=== PATIENT | female | born 1945 | race Two or more races ===

== ENCOUNTER 2024-05-09 08:55 | Inpatient (IN) | payer OTHER ==
[~2024-05-09] VITALS: Ht 167.6 cm; Wt 59.3 kg
[2024-05-09 09:20] VITALS: PULSE 73; RESP 22; O2SAT 94
[2024-05-09 09:59] LABS: Chloride 99 mmol/L (98-107); Sodium 137 mmol/L (136-145)
[2024-05-09 10:00] LABS: Anion Gap 9 (5-15); Carbon Dioxide 29 mmol/L (20-30)
[2024-05-09 10:01] LABS: Calcium 9.9 mg/dL (8.5-10.1)
[2024-05-09 10:04] LABS: Basophils # (auto) 0 10 ^3/uL (0-0.2); Basophils % (auto) 0.4 % (0.0-2.0); Eosinophils # (auto) 0.2 10 ^3/uL (0-0.8); Eosinophils % (auto) 1.7 % (0.0-7.0); Hematocrit 36.8 % (36.0-46.0); Lymphocytes % (auto) 30.1 % (10.0-50.0); Mean Corpuscular Hemoglobin 31.8 pg (28.0-32.0); Mean Corpuscular Hgb Conc. 35.4 g/dL (32.0-36.0); Monocytes # (auto) 0.4 10 ^3/uL (0-1.3); Monocytes % (auto) 4.2 % (0.0-12.0); Neutrophils # (auto) 6.3 10 ^3/uL (1.6-8.6); Neutrophils % (auto) 63.6 % (37.0-80.0); Nucleated Red Blood Cells % 0.1 %; Red Blood Cells 4.09 10^6/uL (4.0-5.20); White Blood Cell 9.9 10^3/uL (4.4-10.8)
[2024-05-09 10:05] LABS: BUN/Creatinine Ratio 20.6 (10.0-20.0); Blood Urea Nitrogen 22 mg/dL (9-23); Glucose 131 mg/dL (74-106)
[2024-05-09 10:22] LABS: Potassium 2.2 mmol/L (3.5-5.1)
[2024-05-09] MEDS: POTASSIUM CHL 20MEQ/100ML 100 ML IV SCH (10:46)
[2024-05-09] MEDS: IOHEXOL 300 MG/ML 100ML BOTTLE IJ ONE (10:51)
[2024-05-09] MEDS: ASPirin 81 mg TAB PO ONE (16:54)
[2024-05-09] MEDS: MORPHINE SULFATE 4 MG/ML SYR/VIAL IV ONE (16:55)
[2024-05-09 19:35] VITALS: PULSE 65; RESP 16; O2SAT 100
[2024-05-09] MEDS: FLEET ENEMA(ADULT) 135 ML PR ONE (20:30)
[2024-05-09] MEDS ORDERED: ONDANSETRON HCL 4 MG/2 ML VIAL IV PRN (20:30)
[2024-05-09] MEDS ORDERED: ACETAMINOPHEN 325 MG TAB PO PRN ×2 (20:30→22:00)
[2024-05-09] MEDS ORDERED: NITROGLYCERIN 0.4 MG SL TAB SL PRN (22:00)
[2024-05-09] MEDS ORDERED: MORPHINE SULFATE INJ 2 MG/ml SYRG IV PRN ×2 (22:00)
[2024-05-09] MEDS: ENOXAPARIN SOD 80 MG/0.8ML SYRINGE SC ONE (22:02)
[2024-05-09] MEDS: ATORVASTATIN 20 MG TAB PO SCH (22:07)
[2024-05-09] MEDS: DOCUSATE SOD 100 MG CAP PO SCH (22:07)
[2024-05-09 23:12] LABS: Urine Bacteria None Seen /hpf (None Seen); Urine WBC None Seen /hpf (0 - 5)
[2024-05-09 23:46] LABS: Urine Blood Negative /uL (Negative); Urine Clarity Clear (Clear); Urine Color Light-Yellow (Yellow); Urine Hyaline Cast MOD /lpf (0 - 2); Urine Mucus FEW (None Seen); Urine Protein, UAD Negative (Negative); Urine Specific Gravity 1.015 (1.001-1.035); Urine Urobilinogen Normal (Negative)
[2024-05-10] VITALS (9 sets, daily range): BP systolic 96–108; BP diastolic 51–61; PULSE 65–81; RESP 16–22; TEMP 97.8–98.3; O2SAT 93–98
[2024-05-10] MEDS ORDERED: QUET50TA PO (02:14)
[2024-05-10] MEDS ORDERED: MEMA1TAB5 PO (02:14)
[2024-05-10] MEDS ORDERED: HYDR25TA4 PO (02:14)
[2024-05-10] MEDS ORDERED: ATOR40TA52 PO (02:14)
[2024-05-10] MEDS ORDERED: POTA1TAB4 PO (02:14)
[2024-05-10] MEDS ORDERED: FURO40TA4 PO (02:14)
[2024-05-10] MEDS ORDERED: CHOL20007 PO (02:14)
[2024-05-10] MEDS ORDERED: METH2.5T PO (02:14)
[2024-05-10] MEDS ORDERED: ATRO1SOL21 SL (02:58)
[2024-05-10] MEDS ORDERED: LOPE1TAB9 PO (02:58)
[2024-05-10] MEDS ORDERED: ACET325T82 PR (02:58)
[2024-05-10] MEDS ORDERED: ZOFR4T PO (02:58)
[2024-05-10] MEDS ORDERED: ACET325T82 PO (02:58)
[2024-05-10] MEDS ORDERED: MAGN400S25 PO (02:58)
[2024-05-10] MEDS ORDERED: ALBU0.084 NEB (02:58)
[2024-05-10] MEDS ORDERED: BISA-51 PR (02:58)
[2024-05-10] MEDS ORDERED: ALUM1SUS PO (02:58)
[2024-05-10] MEDS ORDERED: SENN-213 PO (02:58)
[2024-05-10 06:07] LABS: Basophils # (auto) 0 10 ^3/uL (0-0.2); Basophils % (auto) 0.2 % (0.0-2.0); Eosinophils # (auto) 0 10 ^3/uL (0-0.8); Eosinophils % (auto) 0.3 % (0.0-7.0); Hematocrit 35.8 % (36.0-46.0); Hemoglobin 12.4 g/dL (12.2-16.2); Lymphocytes # (auto) 1.2 10 ^3/uL (0.4-5.4); Lymphocytes % (auto) 9.5 % (10.0-50.0); Mean Corpuscular Hemoglobin 31.8 pg (28.0-32.0); Mean Corpuscular Hgb Conc. 34.6 g/dL (32.0-36.0); Monocytes # (auto) 0.6 10 ^3/uL (0-1.3); Monocytes % (auto) 4.5 % (0.0-12.0); Neutrophils # (auto) 11.1 10 ^3/uL (1.6-8.6); Neutrophils % (auto) 85.5 % (37.0-80.0); Red Blood Cells 3.89 10^6/uL (4.0-5.20); Red Cell Distribution Width 14.9 % (11.8-14.3)
[2024-05-10 06:31] LABS: Alanine Aminotransferase 41 U/L (7-40); Albumin 3.9 g/dL (3.2-4.8); Alkaline Phosphatase 94 U/L (46-116); Anion Gap 6 (5-15); Aspartate Aminotransferase 50 U/L (13-40); BUN/Creatinine Ratio 17.2 (10.0-20.0); Blood Urea Nitrogen 15 mg/dL (9-23); Calcium 9.8 mg/dL (8.7-10.4); Carbon Dioxide 30 mmol/L (20-30); Chloride 104 mmol/L (98-107); Glucose 96 mg/dL (74-106); Sodium 140 mmol/L (136-145)
[2024-05-10 06:33] LABS: Bilirubin, Total 1.9 mg/dL (0.2-1.0)
[2024-05-10 06:50] LABS: Potassium 2.3 mmol/L (3.5-5.1)
[2024-05-10] MEDS ORDERED: POTASSIUM CHL 20MEQ/100ML 100 ML IV ONE ×2 (07:00)
[2024-05-10 07:05] LABS: Total Protein 6.6 g/dL (5.7-8.2)
[2024-05-10] MEDS: POTASSIUM CHL 20 Meq TABLET PO ONE (07:11)
[2024-05-10] MEDS: POTASSIUM CHL 20MEQ/100ML 100 ML IV SCH (07:22)
[2024-05-10] MEDS: hydroCHLOROthiazide 25 MG TAB PO SCH (10:10)
[2024-05-10] MEDS: ASPirin 81 mg TAB PO SCH (10:10)
[2024-05-10] MEDS: FUROSEMIDE 40 MG TAB PO SCH (10:11)
[2024-05-10] MEDS: PANTOPRAZOLE 40 MG/10 ML VIAL INJ IV SCH (10:12)
[2024-05-10] MEDS: ENOXAPARIN SOD 40 MG/0.4 ML SYRINGE SC SCH (10:12)
[2024-05-10] MEDS: LACTULOSE 20Gm/30ML SOLN PO ONE (11:04)
[2024-05-10 13:48] LABS: Chloride 104 mmol/L (98-107); Potassium 2.9 mmol/L (3.5-5.1); Sodium 141 mmol/L (136-145)
[2024-05-10 13:49] LABS: Anion Gap 11 (5-15); Calcium 10.5 mg/dL (8.7-10.4); Carbon Dioxide 26 mmol/L (20-30)
[2024-05-10 13:54] LABS: BUN/Creatinine Ratio 12.4 (10.0-20.0); Blood Urea Nitrogen 12 mg/dL (9-23); Glucose 98 mg/dL (74-106)
[2024-05-10] MEDS: MEMANTINE HCL 5 MG TAB PO SCH (22:19)
[2024-05-10] MEDS: SENNA 8.6 MG TAB PO SCH (22:19)
[2024-05-11] VITALS (7 sets, daily range): BP systolic 90–119; BP diastolic 56–76; PULSE 59–82; RESP 16–19; TEMP 97.1–98.3; O2SAT 94–100
[2024-05-11] MEDS: LORazepam 2MG/ML-1ML VIAL IV PRN (09:49)
[2024-05-11] MEDS: METOPROLOL TARTRATE 25 MG TAB PO SCH (09:52)
[2024-05-11 12:13] LABS: Free T4 (Free Thyroxine) 1.1 ng/dL (0.89-1.76)
[2024-05-11 12:37] LABS: Folate (Folic Acid) 29.11 ng/mL (>5.38)
[2024-05-11] MEDS: IOHEXOL 350 MG/ML 100ML IJ ONE (12:45)
[2024-05-12] VITALS (10 sets, daily range): BP systolic 96–118; BP diastolic 61–73; PULSE 73–88; RESP 16–18; TEMP 97.3–98.2; O2SAT 94–99
[2024-05-12 06:45] LABS: Alanine Aminotransferase 27 U/L (7-40); Albumin 4.2 g/dL (3.2-4.8); Alkaline Phosphatase 101 U/L (46-116); Anion Gap 11 (5-15); Aspartate Aminotransferase 41 U/L (13-40); Bilirubin, Total 3.1 mg/dL (0.2-1.0); Blood Urea Nitrogen 16 mg/dL (9-23); Calcium 10.7 mg/dL (8.7-10.4); Carbon Dioxide 29 mmol/L (20-30); Chloride 100 mmol/L (98-107); Glucose 93 mg/dL (74-106); Sodium 140 mmol/L (136-145); Total Protein 7.6 g/dL (5.7-8.2)
[2024-05-12 07:06] LABS: Potassium 2.2 mmol/L (3.5-5.1)
[2024-05-12 14:04] LABS: Basophils # (auto) 0 10 ^3/uL (0-0.2); Basophils % (auto) 0.3 % (0.0-2.0); Eosinophils # (auto) 0 10 ^3/uL (0-0.8); Eosinophils % (auto) 0.2 % (0.0-7.0); Hematocrit 41.6 % (36.0-46.0); Hemoglobin 14.3 g/dL (12.2-16.2); Lymphocytes # (auto) 1.5 10 ^3/uL (0.4-5.4); Lymphocytes % (auto) 11.2 % (10.0-50.0); Mean Corpuscular Hemoglobin 31.8 pg (28.0-32.0); Mean Corpuscular Hgb Conc. 34.5 g/dL (32.0-36.0); Mean Corpuscular Volume 92.1 fL (80.0-100.0); Monocytes # (auto) 0.8 10 ^3/uL (0-1.3); Monocytes % (auto) 6.1 % (0.0-12.0); Neutrophils # (auto) 10.8 10 ^3/uL (1.6-8.6); Neutrophils % (auto) 82.2 % (37.0-80.0); Nucleated Red Blood Cells % 0.2 %; Red Blood Cells 4.52 10^6/uL (4.0-5.20); White Blood Cell 13.2 10^3/uL (4.4-10.8)
[2024-05-12] MEDS: POTASSIUM CHL 20MEQ/100ML 100 ML IV SCH (14:41)
[2024-05-12] MEDS: SOD CHL 0.9%/ KCL 20MEQ 1,000 ML IV SCH (18:41)
[2024-05-12] MEDS: POTASSIUM CHLORIDE 60 MEQ, LIDOCAINE 1% (LOCAL ANESTH.) 6 ML in SODIUM CHL 0.9% 500 ML IV ONE (18:42)
[2024-05-12 19:13] LABS: Phosphorus 2.9 mg/dL (2.4-5.1)
[2024-05-13] VITALS (7 sets, daily range): BP systolic 101–136; BP diastolic 61–69; PULSE 64–88; RESP 18–20; TEMP 97.3–98.2; O2SAT 95–100
[2024-05-13 06:38] LABS: Alanine Aminotransferase 22 U/L (7-40); Aspartate Aminotransferase 33 U/L (13-40)
[2024-05-13 06:39] LABS: Bilirubin, Total 2.2 mg/dL (0.2-1.0); Chloride 106 mmol/L (98-107); Potassium 2.7 mmol/L (3.5-5.1); Sodium 141 mmol/L (136-145); Total Protein 6.6 g/dL (5.7-8.2)
[2024-05-13 06:42] LABS: Anion Gap 8 (5-15); Calcium 9.8 mg/dL (8.5-10.1); Carbon Dioxide 27 mmol/L (20-30)
[2024-05-13 06:47] LABS: Alkaline Phosphatase 92 U/L (46-116); BUN/Creatinine Ratio 19.1 (10.0-20.0); Blood Urea Nitrogen 21 mg/dL (9-23); Glucose 106 mg/dL (74-106); Magnesium 2.2 mg/dL (1.6-2.6)
[2024-05-13 06:48] LABS: Basophils # (auto) 0 10 ^3/uL (0-0.2); Basophils % (auto) 0.2 % (0.0-2.0); Eosinophils # (auto) 0 10 ^3/uL (0-0.8); Eosinophils % (auto) 0.4 % (0.0-7.0); Hematocrit 38.3 % (36.0-46.0); Hemoglobin 13.5 g/dL (12.2-16.2); Lymphocytes # (auto) 1.3 10 ^3/uL (0.4-5.4); Lymphocytes % (auto) 11.8 % (10.0-50.0); Mean Corpuscular Hgb Conc. 35.3 g/dL (32.0-36.0); Mean Corpuscular Volume 90.6 fL (80.0-100.0); Monocytes # (auto) 0.8 10 ^3/uL (0-1.3); Monocytes % (auto) 7.4 % (0.0-12.0); Neutrophils # (auto) 8.7 10 ^3/uL (1.6-8.6); Neutrophils % (auto) 80.2 % (37.0-80.0); Nucleated Red Blood Cells % 0.1 %; Red Blood Cells 4.22 10^6/uL (4.0-5.20); White Blood Cell 10.8 10^3/uL (4.4-10.8)
[2024-05-13 06:49] LABS: Albumin 3.8 g/dL (3.2-4.8)
[2024-05-13] MEDS: POTASSIUM CHL 20 Meq TABLET PO ONE ×2 (09:34→21:18)
[2024-05-13] MEDS: SPIRONOLACTONE 25 MG TAB PO SCH (09:34)
[2024-05-13] MEDS: POTASSIUM CHLORIDE 20 MEQ, LIDOCAINE 1% (LOCAL ANESTH.) 2 ML in SODIUM CHL 0.9% 100 ML IV ONE (10:08)
[2024-05-13] MEDS: POTASSIUM EFFERVESENT TAB 25 MEQ PO ONE (13:54)
[2024-05-14] VITALS (14 sets, daily range): BP systolic 113–139; BP diastolic 54–82; PULSE 69–97; RESP 14–23; TEMP 97.6–98.2; O2SAT 92–99
[2024-05-14 06:54] LABS: Anion Gap 7 (5-15); Carbon Dioxide 27 mmol/L (20-30); Chloride 114 mmol/L (98-107)
[2024-05-14 06:55] LABS: Basophils # (auto) 0 10 ^3/uL (0-0.2); Basophils % (auto) 0.2 % (0.0-2.0); Calcium 10.3 mg/dL (8.7-10.4); Eosinophils # (auto) 0 10 ^3/uL (0-0.8); Eosinophils % (auto) 0.3 % (0.0-7.0); Hematocrit 37.5 % (36.0-46.0); Hemoglobin 13.1 g/dL (12.2-16.2); Lymphocytes # (auto) 1.1 10 ^3/uL (0.4-5.4); Lymphocytes % (auto) 10.1 % (10.0-50.0); Mean Corpuscular Hemoglobin 32.5 pg (28.0-32.0); Mean Corpuscular Volume 92.6 fL (80.0-100.0); Monocytes # (auto) 0.6 10 ^3/uL (0-1.3); Neutrophils # (auto) 9.3 10 ^3/uL (1.6-8.6); Neutrophils % (auto) 84.4 % (37.0-80.0); Red Blood Cells 4.04 10^6/uL (4.0-5.20); Red Cell Distribution Width 14.8 % (11.8-14.3)
[2024-05-14 07:00] LABS: BUN/Creatinine Ratio 21.7 (10.0-20.0); Blood Urea Nitrogen 20 mg/dL (9-23); Glucose 96 mg/dL (74-106); Magnesium 2.1 mg/dL (1.6-2.6)
[2024-05-14 07:01] LABS: Sodium 148 mmol/L (136-145)
[2024-05-14 09:34] LABS: INR 0.98 (0.9-1.15); Partial Thromboplastin Time 21.1 SEC (24.5-34.5); Prothrombin Time 10.4 sec (9.3-11.8)
[2024-05-14] MEDS: LIDOCAINE 2%HCL (LOCAL ANESTH.) INJ 20ML MDV ONE (15:01)
[2024-05-14] MEDS: ANGIOMAX 250 MG VIAL IV ONE (15:06)
[2024-05-14] MEDS: VERAPAMIL 2.5MG/ML INJ 2ML VIAL IV ONE (15:06)
[2024-05-14] MEDS: HEPARIN SODIUM (PORCINE) 5000 UNITS/ML 1ML VIAL ONE (15:06)
[2024-05-14] MEDS: MIDAZOLAM HCL 2MG/2ML 2ml VIAL (1mg/ml) ONE (15:08)
[2024-05-14] MEDS: fentaNYL CITRATE 100 MCG/2 ML VL ONE (15:08)
[2024-05-14] MEDS: SODIUM CHL 0.9% 0 ML ONE (15:08)
[2024-05-14] MEDS: HYDROcodone-ACET 5/325MG TAB PO PRN (21:41)
[2024-05-15] VITALS (20 sets, daily range): BP systolic 97–138; BP diastolic 58–77; PULSE 78–106; RESP 16–20; TEMP 97.3–98.7; O2SAT 94–100
[2024-05-15] MEDS: LIDOCAINE 2%HCL (LOCAL ANESTH.) INJ 20ML MDV ONE (15:14)
[2024-05-15] MEDS: IODIXANOL 320MG/ML 100ML BTL IV ONE (15:24)
[2024-05-15] MEDS: fentaNYL CITRATE 100 MCG/2 ML VL ONE (15:25)
[2024-05-15] MEDS: MIDAZOLAM HCL 2MG/2ML 2ml VIAL (1mg/ml) ONE (15:26)
[2024-05-15] MEDS: ceFAZolin 1GM/50ML 100 ML IV ONE (15:38)
[2024-05-15] MEDS: HEPARIN SODIUM (PORCINE) 5000 UNITS/ML 1ML VIAL ONE (16:09)
[2024-05-15] MEDS ORDERED: ACETAMINOPHEN 325 MG TAB PO PRN (17:00)
[2024-05-16 05:00] VITALS: BP 122/56; PULSE 83; RESP 16; TEMP 98; O2SAT 100
[2024-05-16 08:00] VITALS: PULSE 80; PULSE 85; RESP 16; O2SAT 96
[2024-05-16 09:00] VITALS: BP 100/53; PULSE 84; RESP 16; TEMP 97.9; O2SAT 98
[2024-05-16] MEDS: METOPROLOL TARTRATE 25 MG TAB PO SCH (11:28)
[2024-05-16] MEDS ORDERED: MET25T PO (12:19)
[2024-05-16] MEDS ORDERED: ASPI-325 PO (12:19)
[2024-05-16] MEDS ORDERED: DOXY-448 PO (12:23)
[2024-05-16 13:00] VITALS: BP 123/78; PULSE 69; RESP 16; TEMP 98.1; O2SAT 95
[2024-05-16 14:12] VITALS: BP 100/53; PULSE 84; RESP 16; TEMP 97.9; O2SAT 98
== END 2024-05-16 15:40 | disposition home or self-care (01) | DRG 228 ==
LOC: EDBD 08:55 → ER 08:55 → TELE-WESTW 21:55 → TELE 21:55 → TELE-WESTW 23:53
PROVIDERS: ADMIT Nurse Practitioner; ATTEND Nurse Practitioner
PROC: 4A023N7 Measurement of Cardiac Sampling and Pressure, Left Heart, Percutaneous Approach (ICD-10-PCS; 2024-05-14)
PROC: B211YZZ Fluoroscopy of Multiple Coronary Arteries using Other Contrast (ICD-10-PCS; 2024-05-14)
PROC: B215YZZ Fluoroscopy of Left Heart using Other Contrast (ICD-10-PCS; 2024-05-14)
PROC: 02HK3NZ Insertion of Intracardiac Pacemaker into Right Ventricle, Percutaneous Approach (ICD-10-PCS; principal; 2024-05-15)
DX: I25.10 Atherosclerotic heart disease of native coronary artery without angina pectoris (principal); I21.A1 Myocardial infarction type 2; N17.9 Acute kidney failure, unspecified; E86.0 Dehydration; E87.6 Hypokalemia; R09.02 Hypoxemia; I95.9 Hypotension, unspecified; E78.5 Hyperlipidemia, unspecified; G30.9 Alzheimer's disease, unspecified; K56.41 Fecal impaction; K44.9 Diaphragmatic hernia without obstruction or gangrene; E83.52 Hypercalcemia; F02.B0 Dementia in other diseases classified elsewhere, moderate, without behavioral disturbance, psychotic disturbance, mood disturbance, and anxiety; I10 Essential (primary) hypertension; T50.2X5A Adverse effect of carbonic-anhydrase inhibitors, benzothiadiazides and other diuretics, initial encounter; Z79.899 Other long term (current) drug therapy
CPT/HCPCS: 33207; 36415; 70450; 70551; 71045; 71275; 74177; 80048; 80053; 81001; 82306; 82607; 82746; 83735; 83880; 84100; 84439; 84443; 84484; 85025; 85379; 85610; 85730; 93005; 93306; 93458; 93970; 95819; 96365; 96375; 97110; 97116; 97163; 97530; 99152; G0378; J2001; J2250; J2470; J3480; Q9967